=== PATIENT | male | born 1970 | race American Indian/Alaskan Native ===

== ENCOUNTER → 2020-10-04 14:30 | Outpatient (CLI) | payer OTHER, SELFPAY ==
[2020-10-04 16:09] LABS: Add Manual Diff / Slide Review NO; Basophils Absolute Auto 0 /uL (0-100); Basophils Percent Auto 0.3 % (0-2); Eosinophils Absolute Auto 100 /uL (0-450); Eosinophils Percent Auto 1.1 % (2-4); Hemoglobin 15.1 g/dL (13.5-17.5); Lymphocytes Absolute Auto 1500 /uL (1100-4500); Lymphocytes Percent Auto 26.2 % (25-40); Mean Corpuscular HGB Conc 34.3 % (30-36); Mean Corpuscular Hemoglobin 30.9 PG (26-34); Monocytes Absolute Auto 400 /uL (0-900); Monocytes Percent Auto 6.5 % (3-14); Neutrophils Absolute Auto 3900 /uL (1500-7000); Neutrophils Percent Auto 65.9 % (50-75); Platelet Count 302 X10^3/uL (150-400); Red Blood Cell Count 4.88 X10^6/uL (4.5-5.9); Red Cell Distribution Width 13.2 % (11.6-14.8); White Blood Cell Count 5.9 X10^3/uL (4.5-11.0)
[2020-10-04 16:39] LABS: Alanine Aminotransferase 24 IU/L (<50); Albumin 4.5 g/dL (3.5-5.0); Albumin Globulin Ratio 1.4 (1.0-2.8); Alkaline Phosphatase 97 U/L (38-126); Aspartate Aminotransferase 25 IU/L (17-59); BUN Creatinine Ratio 17.8 (6-22); Bilirubin Total 0.5 mg/dL (0.2-1.3); Blood Urea Nitrogen 16 mg/dL (9-20); Calcium 9.4 mg/dL (8.4-10.2); Carbon Dioxide 29 mmol/L (22-32); Chloride 106 mmol/L (98-107); Cholesterol 164 mg/dL (140-199); Estimated Glomerular Filt Rate > 60.0 mL/min (>60); Globulin 3.2 g/dL (1.7-4.1); Glucose 80 mg/dL (70-100); HDL Cholesterol 56 mg/dL (40-60); HEMOLYSIS < 15 (0-50); LDL Cholesterol Calculated 86 mg/dL (<100); Potassium 4.4 mmol/L (3.4-5.1); Sodium 140 mmol/L (137-145); Total Protein 7.7 g/dL (6.3-8.2); Triglycerides 111 mg/dL (35-150)
== END ==
PROVIDERS: PCP Family Medicine; Referring Provider Family Medicine; Visit Provider Family Medicine
DX: R53.83 Other fatigue (principal); Z13.220 Encounter for screening for lipoid disorders; Z13.228 Encounter for screening for other metabolic disorders
CPT/HCPCS: 36415; 80053; 80061; 85025

== ENCOUNTER → 2021-03-12 09:39 | Outpatient (CLI) | payer OTHER, SELFPAY ==
--- NOTE | 2021-03-12 09:41 | DI.US.S_ITS ---
PROCEDURE: US SCROTUM INDICATIONS: Tenderness to the right scrotum, posterior structure mass TECHNIQUE: Real-time scanning was performed of the scrotum and testicles, with image documentation. Color and pulse Doppler interrogation was performed of both testicles. COMPARISON: None. FINDINGS: Right: Testicle is normal in size at 4.3 x 2.8 x 1.8 cm, and homogenous in echotexture. Epididymis is normal in overall size and morphology. No hydrocele or varicoceles. Overlying scrotal skin is normal in thickness. Left: Testicle is normal in size at 4.2 x 3.1 x 1.9 cm, and homogeneous in echotexture. Epididymis is normal in overall size and morphology. No hydrocele or varicoceles. Overlying scrotal skin is normal in thickness. Doppler: Color and pulse Doppler demonstrate normal and symmetric arterial flow in both testicles. IMPRESSION: Normal scrotal/testicular ultrasound. Dictated by: Manan Carbajal M.D. on 03/12/2021 at 11:22 Approved by: Manan Carbajal M.D. on 03/12/2021 at 11:24
== END ==
PROVIDERS: PCP Family Medicine; Referring Provider Family Medicine; Visit Provider Family Medicine
DX: N43.3 Hydrocele, unspecified (principal)
CPT/HCPCS: 76870

== ENCOUNTER → 2021-07-14 09:17 | Outpatient (CLI) | payer OTHER, SELFPAY ==
[2021-07-14 12:41] LABS: COVID19 -Nasal RAPID Negative (Negative)
== END ==
PROVIDERS: PCP Family Medicine; Visit Provider Surgery
DX: Z01.812 Encounter for preprocedural laboratory examination (principal); Z20.822 Contact with and (suspected) exposure to COVID-19
CPT/HCPCS: 87635; C9803

== ENCOUNTER 2021-07-15 11:16 | Day surgery (SDC) | payer OTHER, SELFPAY ==
[2021-07-03 07:55] VITALS: BMI 26.4
[2021-07-15] VITALS (9 sets, daily range): BP systolic 111–142; BP diastolic 76–88; PULSE 69–84; RESP 12–20; TEMP 36.3–37; O2SAT 97–100; BMI 25.8
[2021-07-15] MEDS: LACTATED RINGERS 1,000 ML 42 ML IV (12:08)
--- NOTE | 2021-07-15 12:09 | PM.HP.1 ---
History of Present Illness History of Present Illness Date Patient Seen: 07/15/21 Time Patient Seen: 12:09 Chief complaint: OPEN RIH REPAIR Narrative: 51 y.o man with a reducible right inguinal hernia here for elective open repair. Feeling well today no interval changes in health. Patient History Medical History Erectile dysfunction Hydrocele Recurrent inguinal hernia Tendinitis of left rotator cuff Well adult exam Surgical History Anesthesia Gall stones (~1996) Family & Social History Family History Father Cancer Diabetes mellitus Mother Hypertension Hyperlipidemia Tobacco & Substance use: Smoking Status Never smoker alcohol intake never Substance Use Type does not use Meds Home Medications and Allergies Home Medications Medication Instructions Recorded Confirmed Type sildenafil (pulm.hypertension) 20 40 mg PO DAILY PRN #50 tab 02/19/21 07/03/21 Rx mg tablet Allergies Allergy/AdvReac Type Severity Reaction Status Date / Time No Known Drug Allergies Allergy Verified 07/15/21 11:27 Exam Vital Signs (past 8 hours): - 07/15/21 11:39 Temperature 98.6 F Pulse Rate 84 Respiratory Rate 16 Blood Pressure 119/86 Pulse Oximetry 97 Oxygen Delivery Method Room Air Narrative Exam Narrative: Gen-Adult man alert and oriented Chest-non labored resp Abdomen-Soft non tender. RIH marked. Assessment & Plan Assessment and plan (1) Right inguinal hernia: Status: Acute Assessment & Plan narrative: 51 y.o man with a reducible right inguinal hernia here for elective open hernia repair. Procedural risks discussed with patient including bleeding, infection, chronic pain, reoccurrence, testicular damage and damage to surrounding structures were discussed. He wishes to proceed. Time Spent With Patient Critical Care time: I spent a total of [] minutes of critical care time on this patient's care today; this time is exclusive of procedural time.
[2021-07-15] MEDS: CEFAZOLIN 2 GM/20 ML SYRINGE IV (12:25)
--- NOTE | 2021-07-15 12:38 | SUR.OPER ---
Supine on padded OR bed, head on pillow, arms secured on padded arm boards at <90 degrees abduction, legs uncrossed, safety belt at thigh, tape over blanket over lower legs.
[2021-07-15] MEDS: BUPIVACAINE 0.25% (PF) VIAL 30 ML INJ (12:43)
--- NOTE | 2021-07-15 13:45 | SUR.PHASEI ---
1326 hrs: Pt arrives PACU breathing unassisted. Report recieved from BUTCH Rodriguez and Dr Calderon. All questions answered.
[2021-07-15] MEDS: OXYCODONE/ACETAMINOPHEN 5/325 TABLET 1 TAB PO (13:56)
--- NOTE | 2021-07-15 14:32 | SUR.PHASEII ---
Pt ready to go, awaiting pain med script from Dr. Desai, dressing to abdomen c/d/i.
--- NOTE | 2021-07-15 19:54 | P.OP_ITS ---
Operative Date/Time/Diagnoses Date of procedure: 07/15/21 Time of procedure: 19:54 Pre-op diagnosis: right inguinal hernia Post-op diagnosis: same Procedure & Clinicians Procedure: open repair of right inguinal hernia Same procedure as scheduled: Yes Indications: reducible inguinal hernia Surgeon: Julio Desai Click Yes if Unassisted: Yes Anesthesia Type: General Operative Notes Findings: direct floor defect and small indirect hernia Specimen(s): none sent Procedure in detail: The patient was placed supine on the table and bilateral lower extremity compression devices were applied. Anesthesia was induced they were intubated with an LMA and received 2g of Ancef. A time-out was performed. They were prepped and draped in sterile fashion. The right external inguinal ring and the anterior superior iliac crest were identified and marked. 1 finger breath above the inguinal ligament the skin was infiltrated with 0.25% bupivacaine. The skin incision was made here and the subcutaneous tissues were divided with electrocautery exposing the external oblique aponeurosis which was then opened along the direction of its fibers. Using blunt dissection the internal oblique aporneurosis was from the external oblique upper leaflet to identify the iliohypogastric nerve. Using a kittner the cord was carefully dissected away from the inguinal canal adjacent to the pubic tubercle. The cord including the vas deferens, testicular bloody supply, ilioguinal and genital nerve were encircled with a Luigi drain. A direct floor defect was identified and it was reduced into the abdomen and the internal oblique aporneuorsis was approximated to the inguinal ligament with Ethibond suture to reapproximate the floor. The cremasteric fibers surrounding the cord were divided using electrocautery adjacent to the internal ring.. The vas deferens and the testicular vessels were preserved and protected. There was a small indirect hernia on the anterior medial aspect of the cord which was skeletonized away from the vas deferens and testicular blood supply. The indirect hernia was skeletonized back to the i nternal ring and reduced spontaneously into the abdomen. I selected a 7x 15 cm lightweight Pro Loop hernia mesh. The inferior medial aspect of the mesh was anchored to insertion of the rectus muscle to the pubic tubercle such that there was approximately 2 cm of tubercle overlap with Ethibond and then was run continuously along the inferior edge of the mesh to the shelving edge of the inguinal ligament. Interrupted 3 0 Vicryl suture was used to anchor the superior aspect of the mesh to the conjoined tendon in several places. The tails were then reapproximated loosely around the spermatic cord. The tails of the mesh were then tucked under the external oblique aponeurosis. The repair was checked for hemostasis. The wound was irrigated with sterile saline. The external oblique aponeurosis was reapproximated in a running fashion using 3 0 Vicryl. The subcutaneous tissues were reapproximated with 3 0 Vicryl skin closed with 4 0 Monocryl followed by the application of Dermabond. At the end of the operation I ensured that both testicles were within the scrotum. The sponge instrument count at the end operation was correct. The patient emerged from anesthesia was extubated and transferred to the postoperative care unit in stable condition. A total of 30 ml of of 0.25% bupivicaine was used to infiltrate the skin. Complications: none Post-operative Condition: stable Disposition: same day surgery
== END 2021-07-15 15:15 | disposition home or self-care (01) ==
PROVIDERS: PCP Family Medicine; Referring Provider Surgery; Visit Provider Surgery
PROC: (CPT 49505; principal; 2021-07-15 12:45)
DX: K40.90 Unilateral inguinal hernia, without obstruction or gangrene, not specified as recurrent (principal)
CPT/HCPCS: 49505; C1781; J0690; J1100; J1885; J2250; J2405; J2704; J3010